=== PATIENT | female | born 1935 | race Caucasian/White ===

== ENCOUNTER 2016-10-11 20:50 | Emergency (ER) | payer OTHER ==
--- NOTE | ~2016-10-11 | CT71 ---
[facility] A Service of [facility] RADIOLOGY TEXT RESULTS PATIENT: ANAYA HIGGINS LOCATION: [facility] : 34 UNIT #: [id number] AGE: [address]: Deep Hopper MD SEX: F ORDER DR: [id number] [facility] [address] [place], [place] [address] [id number] E MR#: [id number] Acc #: [id number] NAME: ANAYA HIGGINS : 1935 SEX: F STUDY DATE/TIME: 10/11/2016 21:33 UNIT: [facility] ROOM: STUDY DESCRIPTION: CT Head Wo Contrast Attending Physician: Deep Hopper M.D. Ordering Physician: Jakub Nagel D.O. Primary Care Physician: Lacy Jackson M.D. MEDICAL IMAGING REPORT This report is preliminary unless electronic signature is present EXAM Head CT, 10/11/2016 at 21:33 INDICATION Patient fell today and has subsequent headache and dizziness. FINDINGS Axial images were obtained from the base to the vertex without contrast. Comparison is made with 11/07/2011. This CT exam was performed with one or more of the following radiation dose reduction techniques: automatic exposure control, adjustment of mA and/or kV according to patient size, and iterative reconstruction. There is generalized atrophy. Ventricular size and aeration are normal. Chronic small vessel ischemic changes are present in the white matter. There are atherosclerotic calcifications in the common carotid siphons and distal vertebral arteries. No acute infarct or hemorrhage is seen. There are no masses. There are no skull fractures. IMPRESSION No acute intracranial abnormality. No skull fracture. Dictated by... Doug Howell Jr., M.D. THIS IS AN ELECTRONICALLY VERIFIED REPORT Doug Howell Jr., M.D. at 10/12/2016 6:01 AM PAPO/anita TD: 10/12/2016 04:22 [facility] A Service of [facility] RADIOLOGY TEXT RESULTS PATIENT: ANAYA HIGGINS LOCATION: [facility] : 34 UNIT #: [id number] AGE: [address]: Deep Hopper MD SEX: F ORDER DR: JOB #: [id number] MEDICAL IMAGING REPORT Page 1 of 1 COPY
--- NOTE | ~2016-10-11 | CR151 ---
[facility] A Service of [facility] RADIOLOGY TEXT RESULTS PATIENT: ANAYA HIGGINS LOCATION: [facility] : 34 UNIT #: [id number] AGE: [address]: Deep Hopper MD SEX: F ORDER DR: [id number] [facility] [address] [place], [place] [address] [id number] E MR#: [id number] Acc #: [id number] NAME: ANAYA HIGGINS : 1935 SEX: F STUDY DATE/TIME: 10/11/2016 21:57 UNIT: [facility] ROOM: STUDY DESCRIPTION: CR Hip Min 2 Views Rt Attending Physician: Deep Hopper M.D. Ordering Physician: Jakub Nagel D.O. Primary Care Physician: Lacy Jackson M.D. MEDICAL IMAGING REPORT This report is preliminary unless electronic signature is present EXAM Right hip and pelvis, 10/11/2016 at 21:57 INDICATION Right hip pain after falling off toilet this evening. FINDINGS AP pelvis was obtained in addition to a frog-leg right hip. There is diffuse atherosclerotic disease. There is some chronic soft tissue calcification in both medial proximal thighs, potentially related to related to degenerative disease or old trauma. 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 No acute fracture or malalignment is identified. IMPRESSION No acute fracture or malalignment. Dictated by... Doug Howell Jr., M.D. THIS IS AN ELECTRONICALLY VERIFIED REPORT Doug Howell Jr., M.D. at 10/12/2016 6:01 AM PAPO/anita TD: 10/12/2016 04:45 JOB #: [id number] MEDICAL IMAGING REPORT Page 1 of 1 COPY
--- NOTE | ~2016-10-11 | CR211 ---
[facility] A Service of [facility] & [facility] RADIOLOGY TEXT RESULTS PATIENT: ANAYA HIGGINS LOCATION: [facility] : 34 UNIT #: [id number] AGE: [address]: Deep Hopper MD SEX: F ORDER DR: [id number] [facility] [address] [place], [place] [address] [id number] E MR#: [id number] Acc #: [id number] NAME: ANAYA HIGGINS : 1935 SEX: F STUDY DATE/TIME: 10/11/2016 21:12 UNIT: [facility] ROOM: STUDY DESCRIPTION: CR Ribs Uni 2 View W PA Ch Rt Attending Physician: Deep Hopper M.D. Ordering Physician: Jakub Nagel D.O. Primary Care Physician: Lacy Jackson M.D. MEDICAL IMAGING REPORT This report is preliminary unless electronic signature is present EXAM PA chest and right ribs 4 views, 10/11/2016 HISTORY Chest pain and right side rib pain with painful breathing, status post fall off toilet today. FINDINGS The heart is normal in size. Thoracic aorta is moderately calcified. There is poor inspiratory result with bibasilar atelectasis. Lungs are otherwise clear. There are no pleural effusions. There is no pneumothorax. Images of the right ribs demonstrate a minimally-displaced fracture involving the lateral aspect of the right fifth rib. IMPRESSION Acute or subacute fracture involving the lateral aspect of the right fifth rib. No evidence of pneumothorax. Dictated by... River Amor M.D. THIS IS AN ELECTRONICALLY VERIFIED REPORT River Amor M.D. at 10/12/2016 10:28 AM CRISTIAN/anita TD: 10/12/2016 03:42 JOB #: [id number] MEDICAL IMAGING REPORT Page 1 of 1 COPY
--- NOTE | ~2016-10-11 | CT52 ---
[facility] A Service of [facility] RADIOLOGY TEXT RESULTS PATIENT: ANAYA HIGGINS LOCATION: [facility] : 34 UNIT #: [id number] AGE: [address]: Deep Hopper MD SEX: F ORDER DR: [id number] [facility] [address] [place], [place] [address] [id number] E MR#: [id number] Acc #: [id number] NAME: ANAYA HIGGINS : 1935 SEX: F STUDY DATE/TIME: 10/11/2016 21:33 UNIT: [facility] ROOM: STUDY DESCRIPTION: CT Cervical Spine Wo Cont Attending Physician: Deep Hopper M.D. Ordering Physician: Jakub Nagel D.O. Primary Care Physician: Lacy Jackson M.D. MEDICAL IMAGING REPORT This report is preliminary unless electronic signature is present EXAM Cervical spine CT, 10/11/2016 at 21:33 INDICATIONS Neck pain, headache and dizziness after fall tonight. TECHNIQUE Axial images were obtained through the cervical spine without contrast. Multiplanar reformats were obtained. Comparison is made with 11/07/2011. This CT exam was performed with one or more of the following radiation dose reduction techniques: automatic exposure control, adjustment of mA and/or kV according to patient size, and iterative reconstruction. FINDINGS There is mild grade 1 anterolisthesis of C3 on C4 and C4 on C5. There is advanced multilevel degenerative disc disease and facet arthropathy. Findings are most severe at C4-5 and C5-6. Degenerative disease does appear progressive since the prior study. There are no acute fractures. IMPRESSION Slight progression of multifocal degenerative disc disease and facet arthropathy. No acute fractures. Dictated by... Doug Howell Jr., M.D. THIS IS AN ELECTRONICALLY VERIFIED REPORT Doug Howell Jr., M.D. at 10/12/2016 6:01 AM VAHEK/anita [facility] A Service of [facility] RADIOLOGY TEXT RESULTS PATIENT: ANAYA HIGGINS LOCATION: [facility] : 34 UNIT #: [id number] AGE: [address]: Deep Hopper MD SEX: F ORDER DR: TD: 10/12/2016 04:28 JOB #: [id number] MEDICAL IMAGING REPORT Page 1 of 1 COPY
[~2016-10-11 20:50] MED LIST: ALBUTEROL17 GM INH; ALLOPURINOL300 MG PO; AMITRIPTYLINE H25 MG PO; AMITRYPTYLINE PO; ASPIRIN PO; ASPIRIN81 M2 PO; ASPIRIN81 MG PO; B-COMPLEX-VITA1 EACH PO; B-COMPLEX1 TAB PO; BAYER CHEWABLE81 MG PO; CLARITIN10 M1 PO; COLCHICINE PO; FLEXERIL10 MG PO; GLUCOTROL PO; GLUCOTROL10 MG PO; HUMIBID L.1 TAB.SR . PO; IMDUR PO; ISORDIL PO; ISOSORBIDE DINI30 MG PO; KCL PO; LASIX PO; LEVAQUIN PO; LEVOTHYROXINE25 MCG PO; LIPITOR PO; LIPITOR20 MG PO; LOPRESSOR PO; LORTAB 10-3251 EACH PO; LORTAB 101 TAB 10/5 DOB; LORTAB 101 TAB 10/5 PO; LORTAB 5-325 M1 EACH PO; LORTAB 7.51 TAB 7.5/ DOB; MEDROL DOSEPAK4 MG DOB; METOPROLOL TAR25 MG PO; MOTION SICKNESS25 M4 PO; NASALIDE25 ML; NEXIUM PO; NITROGYLCERIN SUBLINGUAL; NORVASC2.5 MG PO; PHENERGAN PO; PHENERGAN25 M1 PO; PRILOSEC PO; PRILOSEC40 MG PO; REQUIP1 MG PO; SIMVASTATIN40 MG PO; SYNTHROID25 MCG PO; TOPROL XL PO; VITAMIN D400 UNI2 PO; VITAMIN D50000 UNIT PO; ZESTRIL5 MG PO; ZOFRAN ODT4 MG PO; ZOFRAN8 MG PO; ZYLOPRIM PO
[2016-10-11 22:03] LABS: POC - CKMB 2.1 ng/mL (0.0-7.9); POC - TROPONIN <0.05 ng/mL (<=0.05)
[2016-10-11 22:30] LABS: BASOPHIL% 0.7 % (0-2.5); EOSINOPHIL# 0.5 X10e3 (0-0.7); EOSINOPHIL% 7.1 % (0.0-7.0); HEMATOCRIT 40.9 % (35.0-45.0); HEMOGLOBIN 13.5 gm/dL (12.0-16.0); LYMPHOCYTE# 1.4 X10e3 (1.0-3.5); LYMPHOCYTE% 21.1 % (17.0-45.0); MEAN CELL VOLUME 95.4 FL (83-96); MEAN CORPUSCULAR HEMOGLOBIN 31.5 PG (28-34); MEAN PLATELET VOLUME 8.9 FL (6.5-11.5); MONOCYTE# 0.7 X10e3 (0-1.0); MONOCYTE% 9.9 % (3.0-12.0); NEUTROPHIL# 4.2 X10e3 (1.5-7.1); NEUTROPHIL% 61.2 % (40-75); PLATELET COUNT 122 X10e3 (140-420); RED BLOOD COUNT 4.28 X10e (3.90-5.30); RED CELL DISTRIBUTION WIDTH 15.9 % (11.0-15.5); WHITE BLOOD COUNT 6.9 X10e3 (4.0-10.5)
[2016-10-11 22:31] LABS: DIFF IND NO
[2016-10-11 22:52] LABS: CALCIUM SERUM 9.3 mg/dL (8.4-10.2); GLOM FILT RATE Estimated 52.4 mL/min (>60); POTASSIUM 3.5 mmol/L (3.5-5.1)
[2016-10-12 00:29] LABS: URINE APPEARANCE CLEAR; URINE BILIRUBIN NEG (NEG); URINE BLOOD 1+ (NEG); URINE COLOR YELLOW; URINE GLUCOSE NEG (NEG); URINE KETONE NEG (NEG); URINE LEUKOCYTE ESTERASE NEG (NEG); URINE NITRATE NEG (NEG); URINE PH 5.5 (5-8); URINE PROTEIN NEG (NEG); URINE UROBILINOGEN 0.2 MG/DL (NEG)
[2016-10-12 00:32] LABS: URBCS1 AUWI 0-2 /[HPF] (0-2); URINE BACTERIA AUWI NEG (NEGATIVE); URINE SQUAMOUS EPITHELIAL CELL NONE SEEN /[HPF]; UWBCS1 AUWI 0-2 (0-5)
[2016-10-12 00:33] LABS: CULTURE INDICATED? NO
== END 2016-10-12 02:00 | disposition home or self-care (01) ==
LOC: CED 20:50
PROVIDERS: Emergency Medicine
DX: S22.31XA Fracture of one rib, right side, initial encounter for closed fracture (principal); J44.9 Chronic obstructive pulmonary disease, unspecified; Z88.2 Allergy status to sulfonamides; Z79.899 Other long term (current) drug therapy; W18.12XA Fall from or off toilet with subsequent striking against object, initial encounter; Y92.009 Unspecified place in unspecified non-institutional (private) residence as the place of occurrence of the external cause
CPT/HCPCS: 36415; 70450; 71101; 72125; 73502; 80048; 81003; 82553; 84484; 85025; 94010; 96374; 96375; 96376; 99284; J2270; J2405

== ENCOUNTER → 2017-01-01 | Outpatient (CLI) | payer OTHER ==
--- NOTE | ~2017-01-01 | MY29 ---
[facility] A Service of [facility] RADIOLOGY TEXT RESULTS PATIENT: ANAYA HIGGINS LOCATION: [facility] : 34 UNIT #: [id number] AGE: [address]: Lacy Jackson MD SEX: F ORDER DR: [id number] [facility] [address] [place], [place] [address] [id number] O MR#: [id number] Acc #: [id number] NAME: ANAYA HIGGINS : 1935 SEX: F STUDY DATE/TIME: 01/01/2017 8:42 UNIT: [facility] ROOM: STUDY DESCRIPTION: MY BIB SCREENING W/ CAD BILAT Attending Physician: Lacy Jackson M.D. Referring Physician: Lacy Jackson M.D. Ordering Physician: Lacy Jackson M.D. Primary Care Physician: Lacy Jackson M.D. MEDICAL IMAGING REPORT This report is preliminary unless electronic signature is present EXAM Digital screening mammogram 01/01/2017 HISTORY 81-year-old woman, no risk elevation. Annual screen. COMPARISON STUDIES Comparison mammogram 11/07/2015 FINDINGS Digital imaging of each breast was completed utilizing a two-view examination of each breast in craniocaudal and mediolateral-oblique projections. Review and interpretation of digital mammograms include a second review in conjunction with FDA-approved CAD device. There is a normal parenchymal presentation bilaterally consistent with the patient's age. There are no breast masses imaged and no parenchymal asymmetry is visualized. There are no suspicious microcalcifications and I see no focal architectural disturbance. IMPRESSION Negative screening digital mammogram. One-year followup recommended. Patients over the age of 40 are entered into a reminder system with target due date for the next mammogram. A result letter will also be sent to the patient. BIRADS: 1 Negative Dictated by... Rosendo No M.D. THIS IS AN ELECTRONICALLY VERIFIED REPORT [facility] A Service [facility] RADIOLOGY TEXT RESULTS PATIENT: ANAYA HIGGINS LOCATION: [facility] : 34 UNIT #: [id number] AGE: [address]: Lacy Jackson MD SEX: F ORDER DR: Rosendo No M.D. at 01/01/2017 3:51 PM Rom TD: 01/01/2017 15:07 JOB #: [id number] MEDICAL IMAGING REPORT Page 1 of 1 COPY
--- NOTE | ~2017-01-01 | US6 ---
[facility] A Service of [facility] RADIOLOGY TEXT RESULTS PATIENT: ANAYA HIGGINS LOCATION: [facility] : 34 UNIT #: [id number] AGE: [address]: Lacy Jackson MD SEX: F ORDER DR: [id number] [facility] [address] [place], [place] [address] [id number] O MR#: [id number] Acc #: [id number] NAME: ANAYA HIGGINS : 1935 SEX: F STUDY DATE/TIME: 01/01/2017 8:23 UNIT: [facility] ROOM: STUDY DESCRIPTION: US Abdominal Limited Attending Physician: Lacy Jackson M.D. Referring Physician: Lacy Jackson M.D. Ordering Physician: Lacy Jackson M.D. Primary Care Physician: Lacy Jackson M.D. MEDICAL IMAGING REPORT This report is preliminary unless electronic signature is present EXAM Right upper quadrant ultrasound TECHNIQUE Paige-scale and color Doppler sonographic images were obtained through the right upper quadrant. FINDINGS Pancreas appears unremarkable. Liver measures within normal size limits. I do think there is some coarsening of hepatic echotexture. There may be some mild hepatic steatosis. No focal hepatic lesions are seen. Main portal vein is patent with hepatopetal flow. Right kidney is small in size measuring 7.6 x 4.3 x 4.4 cm. No hydronephrosis is seen and no solid or cystic renal masses are identified. There is no intra- or extrahepatic biliary dilatation. Gallbladder is surgically absent. IMPRESSION 1. I do think there is some coarsening of hepatic echotexture. In addition, I think the liver is probably mildly steatotic. No focal hepatic lesions are seen. There is no intra- or extrahepatic biliary dilatation. 2. Patient's right kidney is small in size. There is really no cortical thinning, however. No hydronephrosis is seen. Dictated by... Giulia Johnson M.D. THIS IS AN ELECTRONICALLY VERIFIED REPORT Giulia Johnson M.D. at 01/04/2017 5:21 PM AFF/pcl [facility]. [facility] A Service of [facility] & [facility] RADIOLOGY TEXT RESULTS PATIENT: ANAYA HIGGINS LOCATION: [facility] : 34 UNIT #: [id number] AGE: [address]: Lacy Jackson MD SEX: F ORDER DR: TD: 01/01/2017 18:56 JOB #: [id number] MEDICAL IMAGING REPORT Page 1 of 1 COPY
== END | disposition home or self-care (01) ==
LOC: CWCC 08:03
DX: Z12.31 Encounter for screening mammogram for malignant neoplasm of breast (principal); R89.9 Unspecified abnormal finding in specimens from other organs, systems and tissues; K76.9 Liver disease, unspecified
CPT/HCPCS: 76705; G0202